=== PATIENT | male | born 1995 | race Caucasian/White ===

== ENCOUNTER 2020-03-09 09:24 | Emergency (ER) | payer BC, SELFPAY ==
--- NOTE | 2020-03-09 09:46 | ED.GENADULT ---
HPI - General Adult General Chief complaint: Urogenital-Male Stated complaint: Weakness Time Seen by Provider: 03/09/20 09:47 Source: patient Mode of arrival: ambulatory Limitations: no limitations History of Present Illness HPI narrative: 24-year-old male patient presents to [facility] with complaints of increased urinary frequency and feeling fatigued over the past week. Patient states he is concerned that he might have diabetes and requesting to be checked. Patient denies any headaches, vision changes. Denies any coughing, chest pain or shortness of breath. Denies any abdominal pain, nausea, vomiting or diarrhea. Patient states he has noticed he has been peeing a lot more in the last week as well as just feeling very fatigued and tired more often. Patient states he does not have a primary doctor at this time. Related Data Home Medications Medication Instructions Recorded Confirmed No Home Medications 03/09/20 03/09/20 Allergies Allergy/AdvReac Type Severity Reaction Status Date / Time No Known Allergies Allergy Verified 03/09/20 09:58 Review of Systems Review of Systems: Narrative: CONSTITUTIONAL: Denies fever, chills, or sweats. EYES: Denies visual changes, redness, or discharge. ENT: Denies rhinorrhea, congestion, sore throat, or otalgia. CARDIOVASCULAR: Denies chest pain, palpitations, or edema. RESPIRATORY: Denies cough or dyspnea. GASTROINTESTINAL: Denies abdominal pain, nausea, vomiting, or diarrhea. GENITOURINARY: Denies dysuria or hematuria. Positive increasing urinary frequency SKIN: Denies rash or itching. MUSCULOSKELETAL: Denies back pain, joint pain, or myalgia. NEUROLOGIC: Denies headache, numbness, or weakness. Positive fatigue PSYCHIATRIC: Denies anxiety or depression. PMFSH Social History Social History Gender identity (if verbalized by the patient): Male Comments At the time of my signature I agree with nursing past medical history, surgical, social, and family history. There is no relevant family history pertinent to the presenting complaint. Exam Narrative: Exam Narrative: GENERAL: Well-appearing, well-nourished, and in no acute distress. Patient does appear grossly overweight HEAD: Normocephalic, atraumatic. EYES: PERRLA and EOMI. ENT: Nares clear, no rhinorrhea or epistaxis. Mucous membranes moist. NECK: Supple. No lymphadenopathy CHEST: Clear to auscultation. No respiratory distress. HEART: Regular rate and rhythm. No murmur heard. Normal peripheral pulses. ABDOMEN: Soft, nontender, nondistended, normal active bowel sounds. No CVA tenderness on percussion EXTREMITIES: Normal range of motion. No edema. SKIN: Warm, dry, no rash. NEURO: No focal deficits. Alert and oriented x3. Course Vital Signs Vital signs: Vital Signs Temperature 36.5 C 03/09/20 09:51 Pulse Rate 81 03/09/20 09:51 Respiratory Rate 18 03/09/20 09:51 Blood Pressure 115/62 03/09/20 09:51 Pulse Oximetry 100 03/09/20 09:51 Temperature 36.5 C 03/09/20 09:51 Pulse Rate 81 03/09/20 09:51 Respiratory Rate 18 03/09/20 09:51 Blood Pressure 115/62 03/09/20 09:51 Pulse Oximetry 100 03/09/20 09:51 Vital signs reviewed. Medical Decision Making Differential Diagnosis Differential Diagnosis: Differential diagnosis: Uncomplicated lower UTI, uncomplicated UTI, polynephritis, penile trauma,balanoposthitis, phimosis, paraphimosis, testicular torsion, epididymitis, prostatitis, varicocele, spermatocele, hydrocele, hernia. Discussed with patient that his urine dip looks good in regards to no evidence of a urinary tract infection and there is no ketones or glucose in his urine which is reassuring. Discussed with him that his blood sugar today was normal. Discussed with him that these issues could be caused by something else such as thyroid or other issues that would require blood work for further evaluation and treatment. Discusse
[2020-03-09 09:51] VITALS: BP 115/62; PULSE 81; RESP 18; TEMP 36.5; O2SAT 100
[2020-03-09 09:59] LABS: Glucose Point of Care 102 (65-105)
--- NOTE | 2020-03-09 10:12 | PC.NURSE ---
0947- pt reports he has not eaten since yesterday- [employer] notified.
== END 2020-03-09 10:17 | disposition home or self-care (01) ==
PROVIDERS: Emergency Provider Nurse Practitioner Family
DX: R35.0 Frequency of micturition (principal); R53.83 Other fatigue
CPT/HCPCS: 81003; 82948; 87086; 99203; G0463